=== PATIENT | female | born 1965 | race Caucasian/White ===

== ENCOUNTER 2021-11-16 08:49 | Emergency (ER) | payer OTHER, SELFPAY ==
[2021-11-16 08:53] VITALS: PULSE 70; RESP 22; O2SAT 99
[2021-11-16 08:54] VITALS: BP 141/73; PULSE 70; RESP 22; TEMP 36.8; O2SAT 99
--- NOTE | 2021-11-16 09:26 | ED.GENADULT ---
HPI - General Adult General Chief complaint: Abdominal Pain Stated complaint: abdo pain right side Source: patient Mode of arrival: ambulatory Limitations: no limitations History of Present Illness HPI narrative: Patient presents for evaluation of abdominal pain since yesterday. She states that symptoms woke her up from sleep when she was taking a nap. Pain has been fairly diffuse but more prominent on the right. It wraps circumferentially into the back bilaterally. No fever, chills, nausea, vomiting, change in bowel pattern, urinary symptoms, vaginal bleeding or discharge. No history of similar symptoms. Surgical history positive for tubal ligation. No alcohol use. She does smoke approximately half a pack per day. No illicit drug use. She is not taking any medication for her symptoms. No additional complaints or concerns. Related Data Home Medications Medication Instructions Recorded Confirmed No Home Medications 11/16/21 11/16/21 Allergies Allergy/AdvReac Type Severity Reaction Status Date / Time No Known Allergies Allergy Verified 11/16/21 09:09 Review of Systems Review of Systems: CONSTITUTIONAL: Denies fever, chills, or sweats. EYES: Denies visual changes, redness, or discharge. ENT: Denies rhinorrhea, congestion, sore throat, or otalgia. CARDIOVASCULAR: Denies chest pain, palpitations, or edema. RESPIRATORY: Denies cough or dyspnea. GASTROINTESTINAL:Reports abdominal pain. Denies nausea, vomiting, or diarrhea. GENITOURINARY: Denies dysuria or hematuria. SKIN: Denies rash or itching. MUSCULOSKELETAL: Reports low back pain. Denies joint pain, or myalgia. NEUROLOGIC: Denies headache, numbness, dizziness, or weakness. PSYCHIATRIC: Denies anxiety or depression. [facility] Past Medical History Medical History (Updated 11/16/21 @ 09:42 by Esteban Hu, BRIGIDO, MARVIN) Bunion Carpal tunnel syndrome Surgical History Surgical History History of bunionectomy History of carpal tunnel surgery History of tubal ligation Family History Family History Mother Family history non-contributory Social History Social History Smoking packs per day: 0.5 Smoking cigarettes per day: 10.0 Smoking status: Current every day smoker Tobacco type: cigarettes Alcohol intake: never Substance use: never Living arrangements: alone Gender identity (if verbalized by the patient): Female Spiritual care concerns: No Exam Narrative: GENERAL: Well-appearing, well-nourished. Simply uncomfortable, pacing in the room. HEAD: Normocephalic, atraumatic. EYES: PERRLA and EOMI. ENT: Nares clear, no rhinorrhea or epistaxis. Mucous membranes moist. Oropharynx without tonsillar hypertrophy exudate or other lesions. Bilateral TMs pearly tyson nonbulging NECK: Supple. No adenopathy or masses. No carotid bruits or JVD CHEST: Clear to auscultation. No respiratory distress. No wheezes rales or rhonchi HEART: Regular rate and rhythm. No murmur heard. Normal peripheral pulses. ABDOMEN: Soft, nontender, nondistended, normal active bowel sounds. BACK: No CVA tenderness EXTREMITIES: Normal range of motion. No edema. SKIN: Warm, dry, no rash. NEURO: No focal deficits. Alert and oriented x3. PSYCH: Normal mood and affect. Course Course Emergency Course: This is a 56-year-old female who present with complaints of abdominal pain. On exam she is visibly uncomfortable, pacing in the room. She declined giving urine sample. She would likely benefit from labs and potential imaging. I advised she go to the ER for further evaluation. She was agreeable to plan. I contacted [facility] and spoke with Dr Ghosh who agrees to accept pt for transfer there. Level of Care: Express Care Visit Vital Signs Vital signs: Vital Signs Pulse Rate 70 11/16/21 08:53 Respi
== END 2021-11-16 09:22 | disposition short-term general hospital (02) ==
LOC: EXPBETH 08:53
PROVIDERS: Emergency Provider Nurse Practitioner
DX: R10.9 Unspecified abdominal pain (principal); F17.210 Nicotine dependence, cigarettes, uncomplicated
CPT/HCPCS: 99212; G0463